=== PATIENT | female | born 1975 | race Caucasian/White ===

== ENCOUNTER 2018-05-13 17:44 | Emergency (ER) | payer MEDICAID, OTHER ==
[~2018-05-13] VITALS: Ht 160 cm; Wt 56.8 kg
[2018-05-13 17:45] VITALS: BP 124/82
== END 2018-05-13 20:08 | disposition left against medical advice (07) ==
LOC: ED 20:02
DX: T19.2XXA Foreign body in vulva and vagina, initial encounter (principal); Z97.5 Presence of (intrauterine) contraceptive device; X58.XXXA Exposure to other specified factors, initial encounter; Y93.89 Activity, other specified; Y99.8 Other external cause status; Y92.89 Other specified places as the place of occurrence of the external cause
CPT/HCPCS: 99281